=== PATIENT | male | born 1970 | race Two or more races ===

== ENCOUNTER 2024-06-21 11:14 | Emergency (ER) | payer OTHER ==
[~2024-06-21] VITALS: Ht 165.1 cm; Wt 80.3 kg
[~2024-06-21 11:14] MED LIST: AMOX1TAB12 PO; PERCOCET 5/3251 TAB PO; SYNTHROID50 MCG
[2024-06-21] MEDS ORDERED: TRAMADOL HCL 50 MG TABLET PO ONE (12:30)
[2024-06-21] MEDS ORDERED: NORFLEX100MG PO (13:51)
== END 2024-06-21 15:55 | disposition home or self-care (01) ==
LOC: ER 11:17
DX: S29.8XXA Other specified injuries of thorax, initial encounter (principal); W19.XXXA Unspecified fall, initial encounter; Y93.79 Activity, other specified sports and athletics; Y92.89 Other specified places as the place of occurrence of the external cause; Y99.8 Other external cause status; R07.81 Pleurodynia; Z88.6 Allergy status to analgesic agent